=== PATIENT | female | born 1970 | race Hispanic/Latino ===

== ENCOUNTER 2016-12-29 10:00 | Emergency (ER) | payer SELFPAY ==
[~2016-12-29] VITALS: Ht 157.5 cm; Wt 78.6 kg
[~2016-12-29 10:00] MED LIST: FLEXERIL10 MG PO; LORTAB 7.5 OR; LORTAB5 PO; MEDDOSEPAK OR; NAPROSYN500 MG PO; NO; NO CURRENT MEDS; ULTRAM50 MG OR; ULTRAM50 MG PO
[2016-12-29] MEDS ORDERED: MOTRIN800 MG PO (10:31)
[2016-12-29] MEDS ORDERED: PERCOCET 5/325M1 TAB PO (10:31)
[2016-12-29] MEDS ORDERED: FLEXERIL PO (10:31)
[2016-12-29 10:40] VITALS: BP 106/71
== END 2016-12-29 10:40 | disposition home or self-care (01) | DRG 563 ==
LOC: ED 10:00
DX: S39.012A Strain of muscle, fascia and tendon of lower back, initial encounter (principal); W01.0XXA Fall on same level from slipping, tripping and stumbling without subsequent striking against object, initial encounter; Y93.E5 Activity, floor mopping and cleaning; Y92.009 Unspecified place in unspecified non-institutional (private) residence as the place of occurrence of the external cause

== ENCOUNTER 2017-02-09 15:52 | Emergency (ER) | payer SELFPAY ==
[~2017-02-09] VITALS: Ht 157.5 cm; Wt 72.0 kg
[~2017-02-09 15:52] MED LIST changes: +FLEXERIL PO; +MOTRIN800 MG PO; +PERCOCET 5/325M1 TAB PO
[2017-02-09] MEDS ORDERED: FLEXERIL PO (16:06)
[2017-02-09] MEDS ORDERED: MOTRIN800 MG PO (16:06)
[2017-02-09 16:09] VITALS: BP 127/71
== END 2017-02-09 16:25 | disposition home or self-care (01) | DRG 556 ==
LOC: ED 15:52
DX: M79.1 Myalgia (principal)